=== PATIENT | female | born 1975 | race Caucasian/White ===

== ENCOUNTER → 2016-12-30 | Day surgery (SDC) | payer OTHER ==
[~2016-12-30] MED LIST: APREPITANT 40 MG CAP ONE; BUPIVACAINE/EPINEPHRINE 0.25% PF 30 ML VIAL ONE; KETOROLAC TROMETHAMINE 30 MG/ML (IVP) VIAL IV PUSH ONE; LACTATED RINGER'S 1000 ML INJ 1,000 ML ONE; MIDAZOLAM HCL 2 MG/2 ML VIAL ONE; ONDANSETRON HCL 4 MG/2 ML VIAL IV PUSH ONE; PROPOFOL 200 MG/20 ML AMP IV ONE
--- NOTE | 2017-01-02 05:39 | MP ---
cc: NIURKA SAPP MD DATE OF SURGERY: 12/30/2016 PREOPERATIVE DIAGNOSIS Abnormal uterine bleeding. POSTOPERATIVE DIAGNOSIS Abnormal uterine bleeding. PROCEDURE PERFORMED Exam under anesthesia, diagnostic hysteroscopy, NovaSure endometrial ablation. SURGEON Niurka Sapp. MD INDICATION The patient is a 41-year-old with irregular bleeding. She had normal Pap smear, normal endometrial biopsy. She decided on surgical management with the hopes of decreasing blood flow and possible amenorrhea. A transvaginal ultrasound had been performed preoperatively, was unremarkable for fibroids or polyps. The risks, benefits and alternatives were discussed at length. Consents reviewed and signed prior to procedure. ANESTHESIA LMA. ESTIMATED BLOOD LOSS Minimal. IV FLUIDS 675 mL of LR. URINE OUTPUT 200 mL of clear yellow urine prior to the case. SPECIMENS None. INTRAOPERATIVE FINDINGS Approximately 10 cm uterus. Uterine length 6.5 cm. Uterine width 4.5 cm. NovaSure ablation x74 seconds, power 161. Normal uterus with thin endometrium. No polyps or fibroids noted during hysteroscopy. COMPLICATIONS None. COUNTS Correct. PROCEDURE IN DETAIL After reviewing informed consent the patient was taken to the operating room where general LMA was performed without complications. She was placed in the dorsal lithotomy position with legs in candy-cane stirrups. The perineum was prepped and draped in normal sterile fashion. Exam anesthesia was performed and noted a retroverted uterus approximately 10 weeks in size with the uterine sound cavity length noted to be 6.5 cm. A bivalve speculum was placed in the vagina. A single-tooth tenaculum was placed on the anterior lip of the cervix. The uterus was sounded as noted above. The uterus was dilated to accommodate the diagnostic hysteroscope. The diagnostic hysteroscope was then introduced. The uterine cavity was noted to be normal. The hysteroscope was removed. The NovaSure device was set to 6.5 cm in length. The width was noted to be 4.5 cm. The initial test failed. A ring forceps was placed at the external os of the cervix to ensure an adequate seal in the uterine cavity. The test was then performed again and noted to be successful. The NovaSure device was activated for 74 seconds and the device was removed. A good renetta was noted. The single-tooth tenaculum was removed from the anterior lip of the cervix. The speculum was removed. The drapes were removed. The patient was placed in dorsal supine position. Anesthesia was reversed without complication. Niurka Sapp MD PE/KADIE /12:47 PM /5:25 AM NELY
== END | disposition home or self-care (01) ==
LOC: ESDC 10:33
PROVIDERS: ATTEND Obstetrics & Gynecology
DX: N93.8 Other specified abnormal uterine and vaginal bleeding (principal)
CPT/HCPCS: 00952; 58563; J1885; J2250; J2405; J3010; J7120; J8501

== ENCOUNTER 2018-03-21 16:57 | Emergency (ER) | payer OTHER ==
[~2018-03-21] VITALS: Ht 170.2 cm; Wt 109.0 kg
[2018-03-21 17:17] VITALS: BP 193/93; PULSE 86; RESP 16; TEMP 98; O2SAT 96
[2018-03-21] MEDS ORDERED: SODIUM CHLOR 0.9% 1000 ML INJ 1,000 ML IV SCH (17:49)
[2018-03-21] MEDS ORDERED: SODIUM CHLOR 0.9% 1000 ML INJ 1,000 ML IV ONE (18:00)
[2018-03-21] MEDS ORDERED: SODIUM CHLORIDE 0.9% FLUSH 10 ML FLUSH IV FLUSH PRN (18:00)
[2018-03-21] MEDS ORDERED: ONDANSETRON HCL 4 MG/2 ML VIAL IVP ONE ×2 (18:00→19:30)
[2018-03-21] MEDS ORDERED: MORPHINE SULFATE 4 MG/ML INJ IV PUSH ONE (18:00)
[2018-03-21] MEDS ORDERED: DEXI60CA3 PO (18:01)
[2018-03-21] MEDS ORDERED: FERR325T18 PO (18:01)
[2018-03-21] MEDS ORDERED: CETI-14 (18:01)
[2018-03-21 18:17] LABS: AUTOMATED NEUTROPHIL # 9.8 TH/MM3 (1.8-7.7); BASOPHIL % 0.3 % (0.0-2.0); EOSINOPHIL # 0.1 TH/MM3 (0-0.4); EOSINOPHIL % 1.2 % (0.0-4.0); HEMATOCRIT 39.5 % (35.0-46.0); HEMOGLOBIN 12.9 GM/DL (11.6-15.3); LYMPH % 13.6 % (9.0-44.0); LYMPHOCYTE # 1.6 TH/MM3 (1.0-4.8); MEAN CORPUSCULAR HEMOGLOBIN 25.9 PG (27.0-34.0); MEAN CORPUSCULAR HGB CONC 32.7 % (32.0-36.0); MEAN PLATELET VOLUME 8.2 FL (7.0-11.0); MONO % 3.9 % (0.0-8.0); MONOCYTE # 0.5 TH/MM3 (0-0.9); PLATELET COUNT 313 TH/MM3 (150-450); RED CELL DISTRIBUTION WIDTH 19.3 % (11.6-17.2)
[2018-03-21 18:25] LABS: CHLORIDE 107 MEQ/L (98-107); SODIUM (NA) 140 MEQ/L (136-145)
[2018-03-21 18:28] VITALS: O2SAT 98
[2018-03-21 18:28] LABS: ALBUMIN 3.4 GM/DL (3.4-5.0); BICARBONATE 27.2 MEQ/L (21.0-32.0); CALCIUM 8.8 MG/DL (8.5-10.1)
--- NOTE | 2018-03-21 18:28 | PD ---
HPI Chief Complaint: Abdominal Pain Time Seen by Provider: 17:43 Travel History International Travel<30 days: No Contact w/Intl Traveler<30days: No Traveled to known affect area: No History of Present Illness HPI Patient is a 42-year-old female who presents the emergency room with complaints of mild to moderate right lower quadrant abdominal pain. Patient reports the abdominal pain began around 12:30 PM this afternoon, reports that pain is located to her right lower quadrant. Patient reports that she has had low- grade fever today, reports multiple episodes of nausea and vomiting with her symptoms. Patient reports concerns for possible appendicitis. Patient does have history of a LAP-BAND placed in the past in [place]. She has also history of C-sections. [facility] Past Medical History GERD: Yes ?: Not Past Surgical History Abdominal Surgery: Yes (lap band) Social History Alcohol Use: No Tobacco Use: No Substance Use: No Allergies-Medications (Allergen,Severity, Reaction): Coded Allergies: Penicillins (Verified Allergy, Severe, Anaphylaxis, 03/21/18) Reported Meds & Prescriptions Reported Meds & Active Scripts Active Reported Zyrtec (Cetirizine HCl) 10 Mg Tab.rapdis Ferrous Sulfate 325 Mg (65 Mg Iron) Tablet 325 Mg PO TID Dexilant (Dexlansoprazole) 60 Mg Cap..bp 60 Mg PO DAILY Review of Systems General / Constitutional: Positive: Fever Eyes: No: Visual changes HENT: No: Headaches Cardiovascular: No: Chest Pain or Discomfort Respiratory: No: Shortness of Breath Gastrointestinal: Positive: Nausea, Vomiting, Abdominal Pain Genitourinary: No: Dysuria Musculoskeletal: No: Pain Skin: No Rash Neurologic: No: Weakness Psychiatric: No: Depression Endocrine: No: Polydipsia Hematologic/Lymphatic: No: Easy Bruising Physical Exam Narrative GENERAL: Moderate distress SKIN: Focused skin assessment warm/dry. HEAD: Atraumatic. Normocephalic. EYES: Pupils equal and round. No scleral icterus. No injection or drainage. ENT: No nasal bleeding or discharge. Mucous membranes pink and moist. NECK: Trachea midline. No JVD. CARDIOVASCULAR: Regular rate and rhythm. No murmur appreciated. RESPIRATORY: No accessory muscle use. Clear to auscultation. Breath sounds equal bilaterally. GASTROINTESTINAL: Abdomen soft, tenderness to RLQ, nondistended. Hepatic and splenic margins not palpable. MUSCULOSKELETAL: No obvious deformities. No clubbing. No cyanosis. No edema. NEUROLOGICAL: Awake and alert. No obvious cranial nerve deficits. Motor grossly within normal limits. Normal speech. PSYCHIATRIC: Appropriate mood and affect; insight and judgment normal. Data Data Last Documented VS Vital Signs Date Time Temp Pulse Resp B/P (MAP) Pulse Ox O2 Delivery O2 Flow Rate FiO2 03/21/18 19:40 64 18 122/71 (88) 97 Room Air 03/21/18 17:17 98.0 Orders Orders Complete Blood Count With Diff (03/21/18 17:49) Comprehensive Metabolic Panel (03/21/18 17:49) Lipase (03/21/18 17:49) Prothrombin Time / Inr (Pt) (03/21/18 17:49) Act Partial Throm Time (Ptt) (03/21/18 17:49) Urinalysis - C+S If Indicated (03/21/18 17:49) Ct Abd/Pel W Iv Contrast(Rout) (03/21/18 17:49) Iv Access Insert/Monitor (03/21/18 17:49) Ecg Monitoring (03/21/18 17:49) Oximetry (03/21/18 17:49) Morphine Inj (Morphine Inj) (03/21/18 18:00) Ondansetron Inj (Zofran Inj) (03/21/18 18:00) Sodium Chlor 0.9% 1000 Ml Inj (Ns 1000 M (03/21/18 17:49) Sodium Chloride 0.9% Flush (Ns Flush) (03/21/18 18:00) Ed Urine Pregnancytest Poc (03/21/18 17:49) Sodium Chlor 0.9% 1000 Ml Inj (Ns 1000 M (03/21/18 18:00) Ondansetron Inj (Zofran Inj) (03/21/18 19:30) Ketorolac Inj (Toradol Inj) (03/21/18 20:45) Labs Laboratory Tests Test 03/21/18 18:10 03/21/18 18:16 White Blood Count 12.0 TH/MM3 Red Blood Count 5.00 MIL/MM3 Hemoglobin 12.9 GM/DL Hematocrit 39.5 % Mean Corpuscular Volume 79.0 FL Mean Corpuscular Hemoglobin 25.9 PG Mean Corpuscular Hemoglobin Concent 32.7 % Red Cell Distribution Width 19.3 % Platelet Count 313 TH/MM3 Mean Platelet Volume 8.2 FL Neutrophils (%) (Auto) 81.0 % Lymphocytes (%) (Auto) 13.6 % Monocytes (%) (Auto) 3.9 % Eosinophils (%) (Auto) 1.2 % Basophils (%) (Auto) 0.3 % Neutrophils # (Auto) 9.8 TH/MM3 Lymphocytes # (Auto) 1.6 TH/MM3 Monocytes # (Auto) 0.5 TH/MM3 Eosinophils # (Auto) 0.1 TH/MM3 Basophils # (Auto) 0.0 TH/MM3 CBC Comment DIFF FINAL Differential Comment Prothrombin Time 10.3 SEC Prothromb Time International Ratio 1.0 RATIO Activated Partial Thromboplast Time 26.5 SEC Blood Urea Nitrogen 11 MG/DL Creatinine 0.74 MG/DL Random Glucose 95 MG/DL Total Protein 7.3 GM/DL Albumin 3.4 GM/DL Calcium Level 8.8 MG/DL Alkaline Phosphatase 66 U/L Aspartate Amino Transf (AST/SGOT) 13 U/L Alanine Aminotransferase (ALT/SGPT) 20 U/L Total Bilirubin 0.5 MG/DL Sodium Level 140 MEQ/L Potassium Level 3.6 MEQ/L Chloride Level 107 MEQ/L Carbon Dioxide Level 27.2 MEQ/L Anion Gap 6 MEQ/L Estimat Glomerular Filtration Rate 85 ML/MIN Lipase 76 U/L Urine Collection Type CLEAN CATCH Urine Color YELLOW Urine Turbidity CLEAR Urine pH 7.0 Urine Specific Isabella 1.015 Urine Protein NEG mg/dL Urine Glucose (UA) NEG mg/dL Urine Ketones NEG mg/dL Urine Occult Blood TRACE Urine Nitrite NEG Urine Bilirubin NEG Urine Urobilinogen 0.2 MG/DL Urine Leukocyte Esterase NEG Urine WBC 0-2 /hpf Urine Squamous Epithelial Cells 0-5 /hpf Microscopic Urinalysis Comment CULT NOT INDICATED MDM Medical Decision Making Medical Screen Exam Complete: Yes Emergency Medical Condition: Yes Medical Record Reviewed: Yes Interpretation(s) Vital Signs Date Time Temp Pulse Resp B/P (MAP) Pulse Ox O2 Delivery O2 Flow Rate FiO2 03/21/18 17:17 98.0 86 16 193/93 (126) 96 Differential Diagnosis Appendicitis, ovarian cyst, ovarian torsion, colitis Narrative Course During the course of the patients emergency department visit, the patients history, examination, and differential diagnosis were reviewed with the patient. The patient was placed on a personnel monitor with oximetry and frequent blood pressure monitoring. The patient had an IV access obtained and blood work sent for analysis. The patients laboratory studies were reviewed and remarkable for CBC & BMP Diagram 03/21/18 18:10 Total Protein 7.3, Albumin 3.4, Calcium Level 8.8, Alkaline Phosphatase 66, Aspartate Amino Transf (AST/SGOT) 13 L, Alanine Aminotransferase (ALT/SGPT) 20, Total Bilirubin 0.5 . Radiology studies were reviewed and remarkable for Last Impressions Abdomen/Pelvis CT 03/21/18 2820 Signed Impressions: Service Date/Time: Wednesday, March 21, 2018 19:45 - CONCLUSION: 1. No obstruction or acute inflammatory changes. Normal appendix. 2. Previous lap band without evidence of an acute complication. Small hiatal hernia noted. 3. Small cyst of the left ovary. Rajat Brown MD Patient reevaluated, patient reports that she is feeling much better this time, CT abdomen pelvis shows no acute obstruction or inflammatory process with a normal appendix to the right lower quadrant. All labs and all studies reviewed , patient will follow-up with her primary care doctor and will return to the emergency room as needed. Diagnosis Primary Impression: Abdominal pain Qualified Codes: R10.31 - Right lower quadrant pain Patient Instructions: General Instructions Additional Instructions: Please provide patient with a copy of their lab work and studies at discharge* * Please follow up with your primary care doctor in 2-3 days Return to the ER if symptoms worsen or progress Return to the ER as needed Disposition: 01 DISCHARGE HOME Condition: Stable Aurea Toscano DO Mar 21, 2018 18:28
[2018-03-21 18:29] LABS: BLOOD UREA NITROGEN 11 MG/DL (7-18); GLUCOSE,RANDOM 95 MG/DL (74-106)
[2018-03-21 18:30] LABS: PROTHROMBIN TIME - PATIENT 10.3 SEC (9.8-11.6)
[2018-03-21 18:31] LABS: ALT (GPT) 20 U/L (10-53); AST (GOT) 13 U/L (15-37); CREATININE 0.74 MG/DL (0.50-1.00); GLOMERULAR FILTRATION RATE 85 ML/MIN (>89)
[2018-03-21 18:33] LABS: TOTAL BILIRUBIN ADULT 0.5 MG/DL (0.2-1.0); TOTAL PROTEIN 7.3 GM/DL (6.4-8.2)
[2018-03-21 18:34] LABS: ALKALINE PHOSPHATASE 66 U/L (45-117)
[2018-03-21 18:35] LABS: BILIRUBIN, URINE NEG (NEG); BLOOD, URINE TRACE (NEG); GLUCOSE,URINE NEG (NEG); KETONE, URINE NEG (NEG); NITRITE,URINE NEG (NEG); URINE COLOR YELLOW (YELLW/STRAW); URINE LEUKOCYTE ESTERASE NEG (NEG)
[2018-03-21 18:41] VITALS: BP 118/76; PULSE 69; RESP 16; O2SAT 97
[2018-03-21 19:31] LABS: SQUAMOUS EPITHELIAL CELL URINE 0-5 /hpf (0-5); WBC, URINE 0-2 /hpf (0-5)
[2018-03-21 19:40] VITALS: BP 122/71; PULSE 64; RESP 18; O2SAT 97
[2018-03-21] MEDS ORDERED: IOHEXOL 350 MG/ML 10 ML VIAL (for RAD DIAG) IVCONTRAST ONE (19:50)
--- NOTE | 2018-03-21 20:18 | RADRPT ---
EXAM DATE/TIME: 03/21/2018 19:45 [facility] COMPARISON: No previous studies available for comparison. INDICATIONS : Right lower quadrant pain. IV CONTRAST: 100 cc Omnipaque 350 (iohexol) IV ORAL CONTRAST: No oral contrast ingested. RADIATION DOSE: 21.64 CTDIvol (mGy) MEDICAL HISTORY : None SURGICAL HISTORY : Lap band. ENCOUNTER: Initial ACUITY: 1 day PAIN SCALE: 7/10 LOCATION: Right lower quadrant TECHNIQUE: Volumetric scanning of the abdomen and pelvis was performed. Using automated exposure control and ad justment of the mA and/or kV according to patient size, radiation dose was kept as low as reasonably achievable to obtain optimal diagnostic quality images. DICOM format image data is available electro nically for review and comparison. FINDINGS: LOWER LUNGS: The visualized lower lungs are clear. LIVER: Homogeneous density without lesion. There is no dilation of the biliary tree. No calcified gallston es. SPLEEN: Normal size without lesion. PANCREAS: Within normal limits. KIDNEYS: Normal in size and shape. There is no mass, stone or hydronephrosis. ADRENAL GLANDS: Within normal limits. VASCULAR: There is no aortic aneurysm. BOWEL/MESENTERY: Lab band changes are noted. There is a small hiatal hernia. The rest of the gastrointestinal tract ap pears normal. The appendix is well-visualized and normal. ABDOMINAL WALL: Within normal limits. RETROPERITONEUM: There is no lymphadenopathy. BLADDER: No wall thickening or mass. REPRODUCTIVE: 2.1 cm cyst seen of the left ovary. No inflammatory changes. No free fluid. INGUINAL: There is no lymphadenopathy or hernia. MUSCULOSKELETAL: Within normal limits for patient age. CONCLUSION: 1. No obstruction or acute inflammatory changes. Normal appendix. 2. Previous lap band without evidence of an acute complication. Small hiatal hernia noted. 3. Small cyst of the left ovary. Rajat Brown MD on March 21, 2018 at 20:13 Board Certified Radiologist. This report was verified electronically.
[2018-03-21 20:45] VITALS: BP 120/70
[2018-03-21] MEDS ORDERED: KETOROLAC TROMETHAMINE 30 MG/ML (IVP) VIAL IV PUSH ONE (20:45)
== END 2018-03-21 21:02 | disposition home or self-care (01) ==
LOC: PHED 16:57
DX: R10.31 Right lower quadrant pain (principal); K44.9 Diaphragmatic hernia without obstruction or gangrene; N83.202 Unspecified ovarian cyst, left side; R11.2 Nausea with vomiting, unspecified; K21.9 Gastro-esophageal reflux disease without esophagitis; Z88.0 Allergy status to penicillin; Z79.899 Other long term (current) drug therapy
CPT/HCPCS: 74177; 80053; 81001; 83690; 84703; 85025; 85610; 85730; 96361; 96374; 96375; 96376; 99284; J1885; J2270; J2405; J7030; Q9967